=== PATIENT | female | born 2005 | race Caucasian/White ===

== ENCOUNTER 2023-06-30 21:45 | Emergency (ER) | payer BC, OTHER ==
[~2023-06-30] VITALS: Ht 162.6 cm; Wt 74.8 kg
[2023-06-30 23:00] VITALS: TEMP 97.8
[2023-06-30] MEDS ORDERED: ONDANSETRON HCL/PF 4 MG/2 ML VIAL ONE (23:12)
[2023-06-30] MEDS: IV NS 0.9% 1,000 ML BAG IV ONE (23:20)
[2023-06-30] MEDS: ONDANSETRON HCL/PF 4 MG/2 ML VIAL IVP ONE (23:20)
[2023-06-30 23:29] LABS: BASOPHILS % (AUTO) 0.3 % (0.0-2.0); EOSINOPHILS # (AUTO) 0.2 K/uL (0.0-0.7); EOSINOPHILS % (AUTO) 2.2 % (0.0-6.0); HEMATOCRIT 37 % (33-45); HEMOGLOBIN 12.2 g/dL (11.5-14.8); LYMPHOCYTES # (AUTO) 3.5 K/uL (0.8-4.8); LYMPHOCYTES % (AUTO) 31.1 % (20.0-44.0); MEAN CORPUSCULAR HEMOGLOBIN 28 PG (26.0-33.0); MEAN CORPUSCULAR HGB CONC 33 g/dl (31.0-36.0); MEAN CORPUSCULAR VOLUME 84 fL (82-100); MONOCYTES # (AUTO) 0.9 K/uL (0.1-1.30); MONOCYTES % (AUTO) 7.8 % (2.0-12.0); NEUTROPHILS # (AUTO) 6.5 K/uL (1.8-8.9); NEUTROPHILS % (AUTO) 58.6 % (43.0-81.0); PLATELET COUNT (AUTO) 445 K/uL (150-450); RED CELL DISTRIBUTION WIDTH 14.2 % (11.5-15.0); WHITE BLOOD COUNT (AUTO) 11.2 K/uL (4.3-11.0)
[2023-06-30 23:42] LABS: INR 0.88 (0.91-1.10); PARTIAL THROMBOPLASTIN TIME 29.1 SEC (24.3-34.3); PROTHROMBIN TIME 9.4 SECS (9.2-11.1)
[2023-06-30 23:43] LABS: ALBUMIN 3.2 g/dL (3.4-5.0); BILIRUBIN,DIRECT 0.1 mg/dL (0.0-0.2); BILIRUBIN,TOTAL 0.3 mg/dL (0.2-1.0); CALCIUM, SERUM 8.5 mg/dL (8.5-10.1); CREATININE 0.7 mg/dL (0.6-1.3); POTASSIUM 3.8 mmol/L (3.5-5.1); TOTAL PROTEIN, SERUM 7.2 g/dL (6.4-8.2)
[2023-07-01] MEDS ORDERED: ONDANSETRON HCL/PF 4 MG/2 ML VIAL ONE (00:48)
[2023-07-01] MEDS ORDERED: LIDOCAINE VISCOUS 2% UD 15 ML UDC ONE (00:49)
[2023-07-01] MEDS ORDERED: MAG HYDROX/AL HYDROX/SIMETH 30 ML UDC ONE (00:49)
[2023-07-01] MEDS: ONDANSETRON HCL/PF 4 MG/2 ML VIAL IV ONE (00:55)
[2023-07-01] MEDS: MAG HYDROX/AL HYDROX/SIMETH 30 ML UDC PO ONE (00:56)
[2023-07-01] MEDS: LIDOCAINE VISCOUS 2% UD 15 ML UDC MM ONE (00:56)
[2023-07-01 01:09] LABS: PREGNANCY TEST URINE QUAL NEGATIVE (NEGATIVE)
[2023-07-01 01:10] LABS: ADD URINE CULTURE NO; APPEARANCE,URINE CLEAR (CLEAR); BACTERIA,URINE Rare /HPF (None Seen); BILIRUBIN,URINE NEGATIVE (NEGATIVE); BLOOD, URINE 3+ Ery/uL (NEGATIVE); COLOR,URINE YELLOW (YELLOW); KETONES,URINE NEGATIVE (NEGATIVE); LEUKOCYTE ESTERASE ,URINE TRACE (NEGATIVE); NITRITE, URINE NEGATIVE (NEGATIVE); PROTEIN,URINE NEGATIVE (NEGATIVE); SQUAMOUS EPITHELIAL CELL,UR Few /HPF (None Seen); UGLUCOSE NEGATIVE (NEGATIVE); UROBILINOGEN,URINE 0.2 EU/dL (0.2)
[2023-07-01] MEDS ORDERED: PANT40TA2 PO (01:27)
[2023-07-01] MEDS ORDERED: ONDA4TAB5 PO (01:27)
[2023-07-01 01:41] VITALS: BP 128/75; O2SAT 99
== END 2023-07-01 01:43 | disposition home or self-care (01) ==
LOC: ER 21:52
DX: K92.0 Hematemesis (principal); K21.9 Gastro-esophageal reflux disease without esophagitis
CPT/HCPCS: 99285; 74176; 96374; 71045; 96361; 85025; 80048; 83690; 80076; 36415; 85730; 96376; 84703; 81001; J2405 ×2; J7030